=== PATIENT | female | born 1980 ===

== ENCOUNTER 2017-06-12 08:07 | Day surgery (SDC) | payer BC ==
[2017-06-12 09:06] VITALS: BMI 24.3
[2017-06-12] MEDS ORDERED: Midazolam 2 MG/2 ML VIAL ONE ×2 (10:09→10:42)
[2017-06-12] MEDS ORDERED: Propofol 10 mg/ml Inj (20 ML) ONE ×3 (10:09→10:53)
[2017-06-12] MEDS ORDERED: ceFAZolin IV 1 gm in Dextrose 1 GM/50 ML BAG IVPB ONE (10:30)
[2017-06-12] MEDS ORDERED: Lidocaine 1% Inj (20ml) ONE (10:30)
[2017-06-12] MEDS ORDERED: Lactated Ringer's 1,000 ML IV ONE ×2 (10:30→11:04)
[2017-06-12] MEDS ORDERED: Lidocaine 1% Inj (20ml) IJ ONE (10:40)
[2017-06-12] MEDS ORDERED: HYDROmorphone 0.5 mg/0.5 ml ISec IVP PRN (11:06)
[2017-06-12] MEDS ORDERED: Lactated Ringer's 1,000 ML IV SCH (11:15)
[2017-06-12 11:40] VITALS: RESP 20; O2SAT 100
--- NOTE | 2017-06-12 12:06 | PCM.SURG1 ---
Surgeon's Initial Post Op Note - Surgeon's Notes Surgeon: Dr. Dela Cruz [employer]: PGY1 Pre-Operative Diagnosis: Left chest wall abscess Operative Findings: loculated abscess w/ purulent drainage Post-Operative Diagnosis: as above Operation Performed: incision and drainage of left side chest wall abscess; w/ iodoform packing Specimen/Specimens Removed: none Estimated Blood Loss: EBL {In ML}: 3 Post-Op Condition: Good Date of Surgery/Procedure: 06/12/17 Time of Surgery/Procedure: 10:00
[2017-06-12] MEDS ORDERED: Acetaminophen-Codeine 300/30 mg Tab PO PRN (12:14)
[2017-06-12 12:58] VITALS: BP 123/69; PULSE 88; TEMP 98.5
== END 2017-06-12 13:31 | disposition home or self-care (01) ==
LOC: H.OPSURG 08:07
PROVIDERS: ATTEND Surgery
DX: L02.213 Cutaneous abscess of chest wall (principal)
CPT/HCPCS: 10061; 87070; 87181; J0690; J2001; J2250; J2704; J3010; J7030; J7120